=== PATIENT | male | born 1950 | race Hispanic/Latino ===

== ENCOUNTER 2016-12-28 09:14 | Inpatient (IN) | payer MEDICARE ==
[2016-12-28] MEDS ORDERED: SUBLIMAZE IV ONE (10:36)
[2016-12-28 11:12] LABS: Basophils % (Auto) 0.5 % (0.0-1.8); Eosinophils % (Auto) 0.8 % (0.0-4.3); Hematocrit 35.9 % (35.5-45.6); Hemoglobin 12.2 gm/dl (11.8-15.2); Mean Corpuscular HGB Conc 34 % (32-34); Mean Corpuscular Hemoglobin 34 pg (28-32); Mean Corpuscular Volume 99 fl (84-94); Platelet Count 152 K/mm3 (140-440); Red Blood Count 3.63 M/mm3 (3.65-5.03); Red Cell Distribution Width 14.4 % (13.2-15.2); White Blood Count 9.5 K/mm3 (4.5-11.0)
--- NOTE | 2016-12-28 11:13 | XRay Report ---
LEFT ANKLE, 2 VIEWS LEFT FOOT, 2 VIEWS History: Left foot and ankle pain. Findings: Limited exam with non-standard projections and posterior splint. A fracture/dislocation is identified at the left ankle. There is posterolateral dislocation of the talus with respect to the distal tibia. An oblique fracture through the distal fibula just before the ankle joint is displaced by 1 cm. The distal tibia is grossly intact. The remaining foot bones are grossly intact. Impression: Limited exam. Fracture/dislocation of the left ankle is identified as described above. Consultation with orthopedics and CT is recommended.
[2016-12-28 11:14] LABS: Anion Gap 22 mmol/L; BUN/Creatinine Ratio 8; Blood Urea Nitrogen 5 mg/dL (9-20); Calcium 8.4 mg/dL (8.4-10.2); Carbon Dioxide 20 mmol/L (22-30); Chloride 94.6 mmol/L (98-107); Glucose 95 mg/dL (75-100); Potassium 4.5 mmol/L (3.6-5.0); Sodium 132 mmol/L (137-145)
[2016-12-28 11:22] LABS: INR 1.05 (0.87-1.13)
[2016-12-28 11:23] LABS: Partial Thromboplastin Time 25.6 Sec. (24.2-36.6)
--- NOTE | 2016-12-28 11:46 | Emergency Department Report ---
ED General Adult HPI - General Chief complaint: Extremity Injury, Lower Stated complaint: POSS FRACTURED LT ANKLE Time Seen by Provider: 12/28/16 10:00 Source: patient, EMS Mode of arrival: Stretcher Limitations: Physical Limitation - History of Present Illness Initial comments: Patient is a 66-year-old male no significant past medical history who presents with left foot pain. Patient states that earlier today he fell down stairs and caught his ankle caught in the rail. He states that he's not been able to stand on it. He states that the pain is a 10 out of 10 and is an achy type of pain moving it makes it worse and nothing makes it better. The pain radiates up his leg and is constant. Onset of pain was sudden. Patient denies hernia himself anywhere else in his body. Severity scale (0 -10): 10 - Related Data Home Medications Medication Instructions Recorded Confirmed Last Taken No Known Home Medications [No 12/28/16 12/28/16 Unknown Reported Home Medications] Allergies Allergy/AdvReac Type Severity Reaction Status Date / Time No Known Allergies Allergy Unverified 12/28/16 09:43 ED Review of Systems ROS: Stated complaint: POSS FRACTURED LT ANKLE Other details as noted in HPI Constitutional: denies: chills, fever Eyes: denies: eye pain, eye discharge, vision change ENT: denies: ear pain, throat pain Respiratory: denies: cough, shortness of breath, wheezing Cardiovascular: denies: chest pain, palpitations Endocrine: no symptoms reported Gastrointestinal: denies: abdominal pain, nausea, diarrhea Genitourinary: denies: urgency, dysuria Musculoskeletal: as per HPI (left ankle pain ). denies: back pain, joint swelling, arthralgia Skin: denies: rash, lesions Neurological: denies: headache, weakness, paresthesias Psychiatric: denies: anxiety, depression Hematological/Lymphatic: denies: easy bleeding, easy bruising ED Past Medical Hx - Past Medical History Previous Medical History?: No - Surgical History Past Surgical History?: Yes Additional Surgical History: R FOOT SURGERY 1993 - Social History Smoking Status: Never Smoker Substance Use Type: Alcohol - Medications Home Medications: Home Medications Medication Instructions Recorded Confirmed Last Taken Type No Known Home Medications [No 12/28/16 12/28/16 Unknown History Reported Home Medications] ED Physical Exam - General Limitations: Physical Limitation General appearance: alert, in no apparent distress - Head Head exam: Present: atraumatic, normocephalic - Eye Eye exam: Present: normal appearance - ENT ENT exam: Present: mucous membranes moist - Neck Neck exam: Present: normal inspection - Respiratory Respiratory exam: Present: normal lung sounds bilaterally. Absent: respiratory distress - Cardiovascular Cardiovascular Exam: Present: regular rate, normal rhythm. Absent: systolic murmur, diastolic murmur, rubs, gallop - GI/Abdominal GI/Abdominal exam: Present: soft, normal bowel sounds - Rectal Rectal exam: Present: deferred - Extremities Exam Extremities exam: Present: other (left ankle deformity +2 pulses intact sensation. ) - Back Exam Back exam: Present: normal inspection - Neurological Exam Neurological exam: Present: alert, oriented X3 - Psychiatric Psychiatric exam: Present: normal affect, normal mood - Skin Skin exam: Present: warm, dry, intact, normal color. Absent: rash ED Course Vital Signs 12/28/16 12/28/16 12/28/16 09:27 09:35 09:36 Temperature 98.2 F Temperature [ Pre-Procedure] Pulse Rate 102 H Pulse Rate [ Intra-Procedure ] Pulse Rate [ Post-Procedure] Pulse Rate [Pre -Procedure] Respiratory 14 Rate Respiratory Rate [Intra- Procedure] Respiratory Rate [Post- Procedure] Respiratory Rate [Pre- Procedure] Blood Pressure 150/68 Blood Pressure [Intra- Procedure] Blood Pressure [Left] Blood Pressure [Post-Procedure ] Blood Pressure [Pre-Procedure] O2 Sat by Pulse 98 97 97 Oximetry O2 Sat by Pulse Oximetry [ Intra-Procedure ] O2 Sat by Pulse Oximetry [Post -Procedure] 12/28/16 12/28/16 12/28/16 09:38 09:40 09:41 Temperature Temperature [ Pre-Procedure] Pulse Rate 95 H 102 H Pulse Rate [ Intra-Procedure ] Pulse Rate [ Post-Procedure] Pulse Rate [Pre -Procedure] Respiratory 13 13 Rate Respiratory Rate [Intra- Procedure] Respiratory Rate [Post- Procedure] Respiratory Rate [Pre- Procedure] Blood Pressure 150/68 Blood Pressure [Intra- Procedure] Blood Pressure [Left] Blood Pressure [Post-Procedure ] Blood Pressure [Pre-Procedure] O2 Sat by Pulse 96 98 97 Oximetry O2 Sat by Pulse Oximetry [ Intra-Procedure ] O2 Sat by Pulse Oximetry [Post -Procedure] 12/28/16 12/28/16 12/28/16 11:18 12:46 12:48 Temperature Temperature [ 98.4 F Pre-Procedure] Pulse Rate Pulse Rate [ 101 H Intra-Procedure ] Pulse Rate [ Post-Procedure] Pulse Rate [Pre 98 H -Procedure] Respiratory 16 Rate Respiratory 17 Rate [Intra- Procedure] Respiratory Rate [Post- Procedure] Respiratory 10 L Rate [Pre- Procedure] Blood Pressure Blood Pressure 212/96 [Intra- Procedure] Blood Pressure [Left] Blood Pressure [Post-Procedure ] Blood Pressure 156/74 [Pre-Procedure] O2 Sat by Pulse 96 Oximetry O2 Sat by Pulse 96 Oximetry [ Intra-Procedure ] O2 Sat by Pulse Oximetry [Post -Procedure] 12/28/16 12/28/16 12/28/16 13:00 13:01 13:02 Temperature Temperature [ Pre-Procedure] Pulse Rate 108 H 114 H 114 H Pulse Rate [ Intra-Procedure ] Pulse Rate [ Post-Procedure] Pulse Rate [Pre -Procedure] Respiratory 21 19 24 Rate Respiratory Rate [Intra- Procedure] Respiratory Rate [Post- Procedure] Respiratory Rate [Pre- Procedure] Blood Pressure 208/109 218/104 218/104 Blood Pressure [Intra- Procedure] Blood Pressure [Left] Blood Pressure [Post-Procedure ] Blood Pressure [Pre-Procedure] O2 Sat by Pulse 97 98 97 Oximetry O2 Sat by Pulse Oximetry [ Intra-Procedure ] O2 Sat by Pulse Oximetry [Post -Procedure] 12/28/16 12/28/16 12/28/16 13:04 13:05 13:06 Temperature Temperature [ Pre-Procedure] Pulse Rate 106 H 108 H 106 H Pulse Rate [ Intra-Procedure ] Pulse Rate [ Post-Procedure] Pulse Rate [Pre -Procedure] Respiratory 22 13 13 Rate Respiratory Rate [Intra- Procedure] Respiratory Rate [Post- Procedure] Respiratory Rate [Pre- Procedure] Blood Pressure 218/104 212/96 212/96 Blood Pressure [Intra- Procedure] Blood Pressure [Left] Blood Pressure [Post-Procedure ] Blood Pressure [Pre-Procedure] O2 Sat by Pulse 96 95 96 Oximetry O2 Sat by Pulse Oximetry [ Intra-Procedure ] O2 Sat by Pulse Oximetry [Post -Procedure] 12/28/16 12/28/16 12/28/16 13:08 13:10 13:12 Temperature Temperature [ Pre-Procedure] Pulse Rate 98 H 100 H 98 H Pulse Rate [ Intra-Procedure ] Pulse Rate [ Post-Procedure] Pulse Rate [Pre -Procedure] Respiratory 9 L 18 9 L Rate Respiratory Rate [Intra- Procedure] Respiratory Rate [Post- Procedure] Respiratory Rate [Pre- Procedure] Blood Pressure 212/96 208/89 208/89 Blood Pressure [Intra- Procedure] Blood Pressure [Left] Blood Pressure [Post-Procedure ] Blood Pressure [Pre-Procedure] O2 Sat by Pulse 97 95 98 Oximetry O2 Sat by Pulse Oximetry [ Intra-Procedure ] O2 Sat by Pulse Oximetry [Post -Procedure] 12/28/16 12/28/16 12/28/16 13:14 13:15 13:16 Temperature Temperature [ Pre-Procedure] Pulse Rate 98 H 97 H 97 H Pulse Rate [ Intra-Procedure ] Pulse Rate [ 99 H Post-Procedure] Pulse Rate [Pre -Procedure] Respiratory 12 12 12 Rate Respiratory Rate [Intra- Procedure] Respiratory 12 Rate [Post- Procedure] Respiratory Rate [Pre- Procedure] Blood Pressure 208/109 197/80 197/80 Blood Pressure [Intra- Procedure] Blood Pressure [Left] Blood Pressure 208/89 [Post-Procedure ] Blood Pressure [Pre-Procedure] O2 Sat by Pulse 97 95 97 Oximetry O2 Sat by Pulse Oximetry [ Intra-Procedure ] O2 Sat by Pulse 97 Oximetry [Post -Procedure] 12/28/16 12/28/16 12/28/16 13:18 13:20 13:22 Temperature Temperature [ Pre-Procedure] Pulse Rate 103 H 101 H 100 H Pulse Rate [ Intra-Procedure ] Pulse Rate [ Post-Procedure] Pulse Rate [Pre -Procedure] Respiratory 12 13 12 Rate Respiratory Rate [Intra- Procedure] Respiratory Rate [Post- Procedure] Respiratory Rate [Pre- Procedure] Blood Pressure 197/80 195/69 195/69 Blood Pressure [Intra- Procedure] Blood Pressure [Left] Blood Pressure [Post-Procedure ] Blood Pressure [Pre-Procedure] O2 Sat by Pulse 97 96 96 Oximetry O2 Sat by Pulse Oximetry [ Intra-Procedure ] O2 Sat by Pulse Oximetry [Post -Procedure] 12/28/16 12/28/16 12/28/16 13:24 13:25 13:26 Temperature Temperature [ Pre-Procedure] Pulse Rate 98 H 97 H 96 H Pulse Rate [ Intra-Procedure ] Pulse Rate [ Post-Procedure] Pulse Rate [Pre -Procedure] Respiratory 12 12 12 Rate Respiratory Rate [Intra- Procedure] Respiratory Rate [Post- Procedure] Respiratory Rate [Pre- Procedure] Blood Pressure 195/69 173/78 173/78 Blood Pressure [Intra- Procedure] Blood Pressure [Left] Blood Pressure [Post-Procedure ] Blood Pressure [Pre-Procedure] O2 Sat by Pulse 96 95 96 Oximetry O2 Sat by Pulse Oximetry [ Intra-Procedure ] O2 Sat by Pulse Oximetry [Post -Procedure] 12/28/16 12/28/16 12/28/16 13:28 13:30 13:32 Temperature Temperature [ Pre-Procedure] Pulse Rate 96 H 103 H 96 H Pulse Rate [ Intra-Procedure ] Pulse Rate [ Post-Procedure] Pulse Rate [Pre -Procedure] Respiratory 12 13 14 Rate Respiratory Rate [Intra- Procedure] Respiratory Rate [Post- Procedure] Respiratory Rate [Pre- Procedure] Blood Pressure 173/78 182/86 182/86 Blood Pressure [Intra- Procedure] Blood Pressure [Left] Blood Pressure [Post-Procedure ] Blood Pressure [Pre-Procedure] O2 Sat by Pulse 96 95 95 Oximetry O2 Sat by Pulse Oximetry [ Intra-Procedure ] O2 Sat by Pulse Oximetry [Post -Procedure] 12/28/16 12/28/16 12/28/16 13:34 13:35 13:36 Temperature Temperature [ Pre-Procedure] Pulse Rate 94 H 94 H 98 H Pulse Rate [ Intra-Procedure ] Pulse Rate [ Post-Procedure] Pulse Rate [Pre -Procedure] Respiratory 13 11 L 10 L Rate Respiratory Rate [Intra- Procedure] Respiratory Rate [Post- Procedure] Respiratory Rate [Pre- Procedure] Blood Pressure 182/86 167/74 167/74 Blood Pressure [Intra- Procedure] Blood Pressure [Left] Blood Pressure [Post-Procedure ] Blood Pressure [Pre-Procedure] O2 Sat by Pulse 95 95 96 Oximetry O2 Sat by Pulse Oximetry [ Intra-Procedure ] O2 Sat by Pulse Oximetry [Post -Procedure] 12/28/16 12/28/16 12/28/16 13:38 13:40 13:42 Temperature Temperature [ Pre-Procedure] Pulse Rate 92 H 100 H 95 H Pulse Rate [ Intra-Procedure ] Pulse Rate [ Post-Procedure] Pulse Rate [Pre -Procedure] Respiratory 12 16 17 Rate Respiratory Rate [Intra- Procedure] Respiratory Rate [Post- Procedure] Respiratory Rate [Pre- Procedure] Blood Pressure 167/74 174/77 174/77 Blood Pressure [Intra- Procedure] Blood Pressure [Left] Blood Pressure [Post-Procedure ] Blood Pressure [Pre-Procedure] O2 Sat by Pulse 95 95 94 Oximetry O2 Sat by Pulse Oximetry [ Intra-Procedure ] O2 Sat by Pulse Oximetry [Post -Procedure] 12/28/16 12/28/16 12/28/16 13:44 13:45 13:46 Temperature Temperature [ Pre-Procedure] Pulse Rate 97 H 97 H 95 H Pulse Rate [ Intra-Procedure ] Pulse Rate [ Post-Procedure] Pulse Rate [Pre -Procedure] Respiratory 17 15 14 Rate Respiratory Rate [Intra- Procedure] Respiratory Rate [Post- Procedure] Respiratory Rate [Pre- Procedure] Blood Pressure 174/77 182/87 182/87 Blood Pressure [Intra- Procedure] Blood Pressure [Left] Blood Pressure [Post-Procedure ] Blood Pressure [Pre-Procedure] O2 Sat by Pulse 95 93 95 Oximetry O2 Sat by Pulse Oximetry [ Intra-Procedure ] O2 Sat by Pulse Oximetry [Post -Procedure] 12/28/16 12/28/16 12/28/16 13:48 13:50 13:51 Temperature Temperature [ Pre-Procedure] Pulse Rate 97 H 105 H 101 H Pulse Rate [ Intra-Procedure ] Pulse Rate [ Post-Procedure] Pulse Rate [Pre -Procedure] Respiratory 17 17 24 Rate Respiratory Rate [Intra- Procedure] Respiratory Rate [Post- Procedure] Respiratory Rate [Pre- Procedure] Blood Pressure 182/87 183/146 183/146 Blood Pressure [Intra- Procedure] Blood Pressure [Left] Blood Pressure [Post-Procedure ] Blood Pressure [Pre-Procedure] O2 Sat by Pulse 96 94 91 Oximetry O2 Sat by Pulse Oximetry [ Intra-Procedure ] O2 Sat by Pulse Oximetry [Post -Procedure] 12/28/16 12/28/16 12/28/16 13:52 13:54 13:55 Temperature Temperature [ Pre-Procedure] Pulse Rate 91 H 86 87 Pulse Rate [ Intra-Procedure ] Pulse Rate [ Post-Procedure] Pulse Rate [Pre -Procedure] Respiratory 12 13 12 Rate Respiratory Rate [Intra- Procedure] Respiratory Rate [Post- Procedure] Respiratory Rate [Pre- Procedure] Blood Pressure 183/146 183/146 173/83 Blood Pressure [Intra- Procedure] Blood Pressure [Left] Blood Pressure [Post-Procedure ] Blood Pressure [Pre-Procedure] O2 Sat by Pulse 95 95 95 Oximetry O2 Sat by Pulse Oximetry [ Intra-Procedure ] O2 Sat by Pulse Oximetry [Post -Procedure] 12/28/16 12/28/16 12/28/16 13:56 13:58 14:00 Temperature Temperature [ Pre-Procedure] Pulse Rate 90 86 82 Pulse Rate [ Intra-Procedure ] Pulse Rate [ Post-Procedure] Pulse Rate [Pre -Procedure] Respiratory 10 L 12 12 Rate Respiratory Rate [Intra- Procedure] Respiratory Rate [Post- Procedure] Respiratory Rate [Pre- Procedure] Blood Pressure 173/83 173/83 173/83 Blood Pressure [Intra- Procedure] Blood Pressure [Left] Blood Pressure [Post-Procedure ] Blood Pressure [Pre-Procedure] O2 Sat by Pulse 97 96 95 Oximetry O2 Sat by Pulse Oximetry [ Intra-Procedure ] O2 Sat by Pulse Oximetry [Post -Procedure] 12/28/16 12/28/16 12/28/16 14:02 14:04 14:05 Temperature Temperature [ Pre-Procedure] Pulse Rate 86 82 90 Pulse Rate [ Intra-Procedure ] Pulse Rate [ Post-Procedure] Pulse Rate [Pre -Procedure] Respiratory 11 L 13 13 Rate Respiratory Rate [Intra- Procedure] Respiratory Rate [Post- Procedure] Respiratory Rate [Pre- Procedure] Blood Pressure 166/83 166/83 161/76 Blood Pressure [Intra- Procedure] Blood Pressure [Left] Blood Pressure [Post-Procedure ] Blood Pressure [Pre-Procedure] O2 Sat by Pulse 96 97 94 Oximetry O2 Sat by Pulse Oximetry [ Intra-Procedure ] O2 Sat by Pulse Oximetry [Post -Procedure] 12/28/16 12/28/16 12/28/16 14:06 14:07 14:09 Temperature Temperature [ Pre-Procedure] Pulse Rate 85 84 85 Pulse Rate [ Intra-Procedure ] Pulse Rate [ Post-Procedure] Pulse Rate [Pre -Procedure] Respiratory 12 13 13 Rate Respiratory Rate [Intra- Procedure] Respiratory Rate [Post- Procedure] Respiratory Rate [Pre- Procedure] Blood Pressure 161/76 161/76 161/76 Blood Pressure [Intra- Procedure] Blood Pressure [Left] Blood Pressure [Post-Procedure ] Blood Pressure [Pre-Procedure] O2 Sat by Pulse 96 96 95 Oximetry O2 Sat by Pulse Oximetry [ Intra-Procedure ] O2 Sat by Pulse Oximetry [Post -Procedure] 12/28/16 12/28/16 12/28/16 14:18 14:20 14:22 Temperature Temperature [ Pre-Procedure] Pulse Rate 80 82 80 Pulse Rate [ Intra-Procedure ] Pulse Rate [ Post-Procedure] Pulse Rate [Pre -Procedure] Respiratory 14 13 13 Rate Respiratory Rate [Intra- Procedure] Respiratory Rate [Post- Procedure] Respiratory Rate [Pre- Procedure] Blood Pressure 167/67 167/67 Blood Pressure [Intra- Procedure] Blood Pressure [Left] Blood Pressure [Post-Procedure ] Blood Pressure [Pre-Procedure] O2 Sat by Pulse 96 97 96 Oximetry O2 Sat by Pulse Oximetry [ Intra-Procedure ] O2 Sat by Pulse Oximetry [Post -Procedure] 12/28/16 12/28/16 12/28/16 14:24 14:25 14:26 Temperature Temperature [ Pre-Procedure] Pulse Rate 81 83 82 Pulse Rate [ Intra-Procedure ] Pulse Rate [ Post-Procedure] Pulse Rate [Pre -Procedure] Respiratory 14 13 11 L Rate Respiratory Rate [Intra- Procedure] Respiratory Rate [Post- Procedure] Respiratory Rate [Pre- Procedure] Blood Pressure 170/74 170/74 170/74 Blood Pressure [Intra- Procedure] Blood Pressure [Left] Blood Pressure [Post-Procedure ] Blood Pressure [Pre-Procedure] O2 Sat by Pulse 96 96 96 Oximetry O2 Sat by Pulse Oximetry [ Intra-Procedure ] O2 Sat by Pulse Oximetry [Post -Procedure] 12/28/16 12/28/16 12/28/16 14:28 14:30 14:32 Temperature Temperature [ Pre-Procedure] Pulse Rate 80 79 80 Pulse Rate [ Intra-Procedure ] Pulse Rate [ Post-Procedure] Pulse Rate [Pre -Procedure] Respiratory 11 L 12 15 Rate Respiratory Rate [Intra- Procedure] Respiratory Rate [Post- Procedure] Respiratory Rate [Pre- Procedure] Blood Pressure 170/74 157/69 166/73 Blood Pressure [Intra- Procedure] Blood Pressure [Left] Blood Pressure [Post-Procedure ] Blood Pressure [Pre-Procedure] O2 Sat by Pulse 97 96 96 Oximetry O2 Sat by Pulse Oximetry [ Intra-Procedure ] O2 Sat by Pulse Oximetry [Post -Procedure] 12/28/16 12/28/16 12/28/16 14:34 14:35 14:36 Temperature Temperature [ Pre-Procedure] Pulse Rate 81 78 80 Pulse Rate [ Intra-Procedure ] Pulse Rate [ Post-Procedure] Pulse Rate [Pre -Procedure] Respiratory 15 13 13 Rate Respiratory Rate [Intra- Procedure] Respiratory Rate [Post- Procedure] Respiratory Rate [Pre- Procedure] Blood Pressure 168/68 168/68 168/68 Blood Pressure [Intra- Procedure] Blood Pressure [Left] Blood Pressure [Post-Procedure ] Blood Pressure [Pre-Procedure] O2 Sat by Pulse 96 96 96 Oximetry O2 Sat by Pulse Oximetry [ Intra-Procedure ] O2 Sat by Pulse Oximetry [Post -Procedure] 12/28/16 12/28/16 12/28/16 14:38 14:40 14:42 Temperature Temperature [ Pre-Procedure] Pulse Rate 80 82 81 Pulse Rate [ Intra-Procedure ] Pulse Rate [ Post-Procedure] Pulse Rate [Pre -Procedure] Respiratory 13 13 14 Rate Respiratory Rate [Intra- Procedure] Respiratory Rate [Post- Procedure] Respiratory Rate [Pre- Procedure] Blood Pressure 168/68 168/74 168/74 Blood Pressure [Intra- Procedure] Blood Pressure [Left] Blood Pressure [Post-Procedure ] Blood Pressure [Pre-Procedure] O2 Sat by Pulse 96 96 96 Oximetry O2 Sat by Pulse Oximetry [ Intra-Procedure ] O2 Sat by Pulse Oximetry [Post -Procedure] 12/28/16 12/28/16 12/28/16 14:44 14:45 14:46 Temperature Temperature [ Pre-Procedure] Pulse Rate 80 82 80 Pulse Rate [ Intra-Procedure ] Pulse Rate [ Post-Procedure] Pulse Rate [Pre -Procedure] Respiratory 14 16 14 Rate Respiratory Rate [Intra- Procedure] Respiratory Rate [Post- Procedure] Respiratory Rate [Pre- Procedure] Blood Pressure 165/73 165/73 165/73 Blood Pressure [Intra- Procedure] Blood Pressure [Left] Blood Pressure [Post-Procedure ] Blood Pressure [Pre-Procedure] O2 Sat by Pulse 97 96 96 Oximetry O2 Sat by Pulse Oximetry [ Intra-Procedure ] O2 Sat by Pulse Oximetry [Post -Procedure] 12/28/16 12/28/16 12/28/16 14:48 14:50 14:52 Temperature Temperature [ Pre-Procedure] Pulse Rate 81 79 80 Pulse Rate [ Intra-Procedure ] Pulse Rate [ Post-Procedure] Pulse Rate [Pre -Procedure] Respiratory 13 14 15 Rate Respiratory Rate [Intra- Procedure] Respiratory Rate [Post- Procedure] Respiratory Rate [Pre- Procedure] Blood Pressure 165/73 174/71 174/71 Blood Pressure [Intra- Procedure] Blood Pressure [Left] Blood Pressure [Post-Procedure ] Blood Pressure [Pre-Procedure] O2 Sat by Pulse 96 96 96 Oximetry O2 Sat by Pulse Oximetry [ Intra-Procedure ] O2 Sat by Pulse Oximetry [Post -Procedure] 12/28/16 12/28/16 12/28/16 14:54 14:55 14:56 Temperature Temperature [ Pre-Procedure] Pulse Rate 85 81 80 Pulse Rate [ Intra-Procedure ] Pulse Rate [ Post-Procedure] Pulse Rate [Pre -Procedure] Respiratory 15 15 15 Rate Respiratory Rate [Intra- Procedure] Respiratory Rate [Post- Procedure] Respiratory Rate [Pre- Procedure] Blood Pressure 161/74 161/74 161/74 Blood Pressure [Intra- Procedure] Blood Pressure [Left] Blood Pressure [Post-Procedure ] Blood Pressure [Pre-Procedure] O2 Sat by Pulse 97 96 97 Oximetry O2 Sat by Pulse Oximetry [ Intra-Procedure ] O2 Sat by Pulse Oximetry [Post -Procedure] 12/28/16 12/28/16 12/28/16 14:58 15:00 15:02 Temperature Temperature [ Pre-Procedure] Pulse Rate 81 80 81 Pulse Rate [ Intra-Procedure ] Pulse Rate [ Post-Procedure] Pulse Rate [Pre -Procedure] Respiratory 16 16 15 Rate Respiratory Rate [Intra- Procedure] Respiratory Rate [Post- Procedure] Respiratory Rate [Pre- Procedure] Blood Pressure 161/74 172/75 172/75 Blood Pressure [Intra- Procedure] Blood Pressure [Left] Blood Pressure [Post-Procedure ] Blood Pressure [Pre-Procedure] O2 Sat by Pulse 96 96 97 Oximetry O2 Sat by Pulse Oximetry [ Intra-Procedure ] O2 Sat by Pulse Oximetry [Post -Procedure] 12/28/16 12/28/16 12/28/16 15:04 15:05 15:06 Temperature Temperature [ Pre-Procedure] Pulse Rate 85 85 92 H Pulse Rate [ Intra-Procedure ] Pulse Rate [ Post-Procedure] Pulse Rate [Pre -Procedure] Respiratory 17 17 15 Rate Respiratory Rate [Intra- Procedure] Respiratory Rate [Post- Procedure] Respiratory Rate [Pre- Procedure] Blood Pressure 171/78 171/78 171/78 Blood Pressure [Intra- Procedure] Blood Pressure [Left] Blood Pressure [Post-Procedure ] Blood Pressure [Pre-Procedure] O2 Sat by Pulse 97 96 Oximetry O2 Sat by Pulse Oximetry [ Intra-Procedure ] O2 Sat by Pulse Oximetry [Post -Procedure] 12/28/16 12/28/16 12/28/16 15:08 15:10 15:12 Temperature Temperature [ Pre-Procedure] Pulse Rate 84 80 81 Pulse Rate [ Intra-Procedure ] Pulse Rate [ Post-Procedure] Pulse Rate [Pre -Procedure] Respiratory 15 15 14 Rate Respiratory Rate [Intra- Procedure] Respiratory Rate [Post- Procedure] Respiratory Rate [Pre- Procedure] Blood Pressure 171/78 168/75 168/75 Blood Pressure [Intra- Procedure] Blood Pressure [Left] Blood Pressure [Post-Procedure ] Blood Pressure [Pre-Procedure] O2 Sat by Pulse 97 96 97 Oximetry O2 Sat by Pulse Oximetry [ Intra-Procedure ] O2 Sat by Pulse Oximetry [Post -Procedure] 12/28/16 12/28/16 12/28/16 15:14 15:15 15:16 Temperature Temperature [ Pre-Procedure] Pulse Rate 82 85 82 Pulse Rate [ Intra-Procedure ] Pulse Rate [ Post-Procedure] Pulse Rate [Pre -Procedure] Respiratory 15 14 15 Rate Respiratory Rate [Intra- Procedure] Respiratory Rate [Post- Procedure] Respiratory Rate [Pre- Procedure] Blood Pressure 164/70 164/70 164/70 Blood Pressure [Intra- Procedure] Blood Pressure [Left] Blood Pressure [Post-Procedure ] Blood Pressure [Pre-Procedure] O2 Sat by Pulse 97 96 98 Oximetry O2 Sat by Pulse Oximetry [ Intra-Procedure ] O2 Sat by Pulse Oximetry [Post -Procedure] 12/28/16 12/28/16 12/28/16 15:18 15:20 15:22 Temperature Temperature [ Pre-Procedure] Pulse Rate 80 82 85 Pulse Rate [ Intra-Procedure ] Pulse Rate [ Post-Procedure] Pulse Rate [Pre -Procedure] Respiratory 15 16 18 Rate Respiratory Rate [Intra- Procedure] Respiratory Rate [Post- Procedure] Respiratory Rate [Pre- Procedure] Blood Pressure 164/70 172/77 172/77 Blood Pressure [Intra- Procedure] Blood Pressure [Left] Blood Pressure [Post-Procedure ] Blood Pressure [Pre-Procedure] O2 Sat by Pulse 97 97 97 Oximetry O2 Sat by Pulse Oximetry [ Intra-Procedure ] O2 Sat by Pulse Oximetry [Post -Procedure] 12/28/16 12/28/16 12/28/16 15:24 15:25 15:26 Temperature Temperature [ Pre-Procedure] Pulse Rate 82 92 H 94 H Pulse Rate [ Intra-Procedure ] Pulse Rate [ Post-Procedure] Pulse Rate [Pre -Procedure] Respiratory 13 15 16 Rate Respiratory Rate [Intra- Procedure] Respiratory Rate [Post- Procedure] Respiratory Rate [Pre- Procedure] Blood Pressure 171/85 171/85 171/85 Blood Pressure [Intra- Procedure] Blood Pressure [Left] Blood Pressure [Post-Procedure ] Blood Pressure [Pre-Procedure] O2 Sat by Pulse 98 97 97 Oximetry O2 Sat by Pulse Oximetry [ Intra-Procedure ] O2 Sat by Pulse Oximetry [Post -Procedure] 12/28/16 12/28/16 12/28/16 15:27 15:28 15:30 Temperature Temperature [ Pre-Procedure] Pulse Rate 86 80 88 Pulse Rate [ Intra-Procedure ] Pulse Rate [ Post-Procedure] Pulse Rate [Pre -Procedure] Respiratory 15 11 L 17 Rate Respiratory Rate [Intra- Procedure] Respiratory Rate [Post- Procedure] Respiratory Rate [Pre- Procedure] Blood Pressure 171/85 171/85 162/76 Blood Pressure [Intra- Procedure] Blood Pressure [Left] Blood Pressure [Post-Procedure ] Blood Pressure [Pre-Procedure] O2 Sat by Pulse 98 99 97 Oximetry O2 Sat by Pulse Oximetry [ Intra-Procedure ] O2 Sat by Pulse Oximetry [Post -Procedure] 12/28/16 12/28/16 12/28/16 15:32 15:34 15:36 Temperature Temperature [ Pre-Procedure] Pulse Rate 91 H 86 90 Pulse Rate [ Intra-Procedure ] Pulse Rate [ Post-Procedure] Pulse Rate [Pre -Procedure] Respiratory 16 13 13 Rate Respiratory Rate [Intra- Procedure] Respiratory Rate [Post- Procedure] Respiratory Rate [Pre- Procedure] Blood Pressure 162/76 162/76 162/76 Blood Pressure [Intra- Procedure] Blood Pressure [Left] Blood Pressure [Post-Procedure ] Blood Pressure [Pre-Procedure] O2 Sat by Pulse 97 100 99 Oximetry O2 Sat by Pulse Oximetry [ Intra-Procedure ] O2 Sat by Pulse Oximetry [Post -Procedure] 12/28/16 12/28/16 12/28/16 15:38 15:40 15:42 Temperature Temperature [ Pre-Procedure] Pulse Rate 84 85 82 Pulse Rate [ Intra-Procedure ] Pulse Rate [ Post-Procedure] Pulse Rate [Pre -Procedure] Respiratory 13 13 14 Rate Respiratory Rate [Intra- Procedure] Respiratory Rate [Post- Procedure] Respiratory Rate [Pre- Procedure] Blood Pressure 162/76 171/85 171/85 Blood Pressure [Intra- Procedure] Blood Pressure [Left] Blood Pressure [Post-Procedure ] Blood Pressure [Pre-Procedure] O2 Sat by Pulse 99 99 99 Oximetry O2 Sat by Pulse Oximetry [ Intra-Procedure ] O2 Sat by Pulse Oximetry [Post -Procedure] 12/28/16 12/28/16 12/28/16 15:44 15:46 15:48 Temperature Temperature [ Pre-Procedure] Pulse Rate 80 81 95 H Pulse Rate [ Intra-Procedure ] Pulse Rate [ Post-Procedure] Pulse Rate [Pre -Procedure] Respiratory 12 13 17 Rate Respiratory Rate [Intra- Procedure] Respiratory Rate [Post- Procedure] Respiratory Rate [Pre- Procedure] Blood Pressure 171/85 171/85 171/85 Blood Pressure [Intra- Procedure] Blood Pressure [Left] Blood Pressure [Post-Procedure ] Blood Pressure [Pre-Procedure] O2 Sat by Pulse 98 99 98 Oximetry O2 Sat by Pulse Oximetry [ Intra-Procedure ] O2 Sat by Pulse Oximetry [Post -Procedure] 12/28/16 12/28/16 15:50 16:01 Temperature 98.2 F Temperature [ Pre-Procedure] Pulse Rate 85 91 H Pulse Rate [ Intra-Procedure ] Pulse Rate [ Post-Procedure] Pulse Rate [Pre -Procedure] Respiratory 13 11 L Rate Respiratory Rate [Intra- Procedure] Respiratory Rate [Post- Procedure] Respiratory Rate [Pre- Procedure] Blood Pressure 171/85 Blood Pressure [Intra- Procedure] Blood Pressure 151/79 [Left] Blood Pressure [Post-Procedure ] Blood Pressure [Pre-Procedure] O2 Sat by Pulse 100 99 Oximetry O2 Sat by Pulse Oximetry [ Intra-Procedure ] O2 Sat by Pulse Oximetry [Post -Procedure] - Reevaluation(s) Reevaluation #1: 12/28/16 12:45 Patient is feeling better after reduction - Consultations Consultation #1: 12/28/16 16:[address] Faulkner for posterior talus dislocation and distal tib-fib fracture. Discussed with Dr. Faulkner patient will be admitted to the hospitalist service and he will be admitted for surgery tomorrow. - Moderate Sedation Indications: fracture/dislocation redu Presedation Evaluation: Patient is alert and oriented dry secretions patient has no upper teeth ASA Class: II Mallampati Airway Score: 2 Time of Last PO Intake: 06:00 Preparation: teletypesetter monitor applied, pulse oximeter, supplemental O2 applied, suction/airway equipment at bedside Ketamine: IV Ketamine Dose: 130 Complications: none Interventions: oxygen applied Patient Tolerated Procedure: well - Orthopedic Fracture Reduction Fracture #1 Consent Obtained: verbal consent Time Out Performed: Yes Side: left Fracture Reduction Location: fibula, other (taleus ) Analgesia: moderate sedation Post Reduction X-rays Demonstrate: acceptable reduction Post-Reduction Neuro Exam: intact Post-Reduction Vascular Exam: intact Splint Applied: Yes Patient Tolerated Procedure: well - Orthopedic Splinting/Casting Injury #1 Side: left Lower Extremity Injury Location: lower leg Lower Extremity Immobilizer: posterior splint, stirrup splint ED Medical Decision Making - Lab Data Result diagrams: 12/28/16 10:37 12/28/16 10:37 Labs 12/28/16 12/28/16 12/28/16 10:37 10:37 10:37 WBC 9.5 RBC 3.63 L Hgb 12.2 Hct 35.9 MCV 99 H MCH 34 H MCHC 34 RDW 14.4 Plt Count 152 Lymph % (Auto) 10.4 L [place] % (Auto) 9.7 H Eos % (Auto) 0.8 Baso % (Auto) 0.5 Lymph # 1.0 L [place] # 0.9 H Eos # 0.1 Baso # 0.1 Seg Neutrophils % 78.6 H Seg Neutrophils # 7.5 PT 14.2 INR 1.05 APTT 25.6 Sodium 132 L Potassium 4.5 Chloride 94.6 L Carbon Dioxide 20 L Anion Gap 22 BUN 5 L Creatinine 0.6 L Estimated GFR > 60 BUN/Creatinine Ratio 8 Glucose 95 Calcium 8.4 - Radiology Data Radiology results: report reviewed, image reviewed Left ankle x-ray: Left ankle fracture dislocation posterior lateral dislocation of the talus Left ankle x-ray: After reduction shows partial reduction of fracture with posterior leg splint applied. - Medical Decision Making Chief medical diagnosis: Distal tib-fib fracture Differential trauma diagnosis: Bimalleolar fracture, trimalleolar fracture, distal fib fracture I will get IV pain medicine, IV sedation, CBC, CMP, INR, PTT, orthopedic surgery consult Patient has distal tibia fracture patient has been sedated and reduced he will need surgery by Dr. Faulkner. Discussed with Dr. Faulkner patient will go to the OR. Tomorrow I will obtain a CT of patient's lower extremity. Patient's pain is better controlled after sedation. Patient will have surgery and he will be admitted to Dr. Rodriguez's service. Discussed outpatient patient agrees with plan. Critical care attestation.: If time is entered above; I have spent that time in minutes in the direct care of this critically ill patient, excluding procedure time. ED Disposition Clinical Impression: Closed left ankle fracture Qualifiers: Encounter type: initial encounter Qualified Code(s): S82.892A - Other fracture of left lower leg, initial encounter for closed fracture Left ankle pain Qualifiers: Chronicity: acute Qualified Code(s): M25.572 - Pain in left ankle and joints of left foot Fracture of distal fibula Qualifiers: Encounter type: initial encounter Fracture type: closed Fracture morphology: unspecified fracture morphology Laterality: left Qualified Code(s): S82.832A - Other fracture of upper and lower end of left fibula, initial encounter for closed fracture Disposition: 09 OP ADMIT IP TO THIS HOSP Is pt being admited?: No Does the pt Need Aspirin: No Condition: Stable
[2016-12-28] MEDS ORDERED: KETALAR IV ONE (12:00)
[2016-12-28] MEDS ORDERED: DILAUDID IV ONE (13:04)
[2016-12-28] MEDS ORDERED: DILAUDID ONE (13:08)
--- NOTE | 2016-12-28 14:42 | History and Physical Report ---
History of Present Illness Date of examination: 12/28/16 Date of admission: 12/28/16 Chief complaint: CC History of present illness: 66 y/o male with no sig PMH fell from stairs after his foot got caught in the railing.Severe pain in Lt ankle and unable to put any weight on L foot.Pain is 10/10 in severity.Sharp in nature.Relieving factor is rest and no movement.Exacerbating factor is any movement in lower extremity. Past History Past Medical History: No medical history Past Surgical History: No surgical history Social history: no significant social history, lives with family, full code Family history: no significant family history Medications and Allergies Allergies Allergy/AdvReac Type Severity Reaction Status Date / Time No Known Allergies Allergy Unverified 12/28/16 09:43 Home Medications Medication Instructions Recorded Confirmed Last Taken Type No Known Home Medications [No 12/28/16 12/28/16 Unknown History Reported Home Medications] Review of Systems All systems: negative Constitutional: no weight loss, no weight gain, no fever, no chills Ears, nose, mouth and throat: no dysphagia, no hoarseness, no sore throat Cardiovascular: no chest pain, no orthopnea, no palpitations, no rapid/ irregular heart beat, no shortness of breath Respiratory: no cough, no shortness of breath, no dyspnea on exertion, no wheezing Gastrointestinal: no abdominal pain, no nausea, no vomiting, no diarrhea, no constipation Genitourinary Male: no dysuria, no hematuria, no flank pain, no discharge, no urinary frequency Rectal: no pain Musculoskeletal: fractures (Lt Trimalleolar Fx), no neck stiffness, no neck pain , no shooting arm pain, no arm numbness/tingling Integumentary: no rash, no pruritis, no redness Neurological: no seizures, no syncope Psychiatric: no anxiety, no memory loss, no change in sleep habits, no sleep disturbances Endocrine: no cold intolerance, no heat intolerance, no polyphagia, no excessive thirst Hematologic/Lymphatic: no easy bruising, no easy bleeding Allergic/Immunologic: no urticaria, no allergic rhinitis, no wheezing Exam - Constitutional Vitals: Temp Pulse Resp BP Pulse Ox 98.4 F 80 11 L 170/74 97 12/28/16 12:46 12/28/16 14:28 12/28/16 14:28 12/28/16 14:28 12/28/16 14:28 General appearance: Present: no acute distress, well-nourished - EENT Eyes: Present: PERRL ENT: hearing intact, clear oral mucosa - Neck Neck: Present: supple, normal ROM - Respiratory Respiratory effort: normal Respiratory: bilateral: CTA - Cardiovascular Heart Sounds: Present: S1 & S2. Absent: rub, click - Extremities Extremities: pulses symmetrical, No edema Peripheral Pulses: within normal limits - Abdominal General gastrointestinal: Present: soft, non-tender, non-distended, normal bowel sounds Male genitourinary: Present: normal - Integumentary Integumentary: Present: clear, warm, dry - Musculoskeletal Musculoskeletal: gait normal, strength equal bilaterally - Psychiatric Psychiatric: appropriate mood/affect, intact judgment & insight - Neurologic Neurologic: CNII-XII intact, moves all extremities Results - Labs CBC & Chem 7: 12/29/16 03:36 12/29/16 03:36 Labs: Laboratory Last Values WBC 9.5 K/mm3 (4.5-11.0) 12/28/16 10:37 RBC 3.63 M/mm3 (3.65-5.03) L 12/28/16 10:37 Hgb 12.2 gm/dl (11.8-15.2) 12/28/16 10:37 Hct 35.9 % (35.5-45.6) 12/28/16 10:37 MCV 99 fl (84-94) H 12/28/16 10:37 MCH 34 pg (28-32) H 12/28/16 10:37 MCHC 34 % (32-34) 12/28/16 10:37 RDW 14.4 % (13.2-15.2) 12/28/16 10:37 Plt Count 152 K/mm3 (140-440) 12/28/16 10:37 Lymph % (Auto) 10.4 % (13.4-35.0) L 12/28/16 10:37 [place] % (Auto) 9.7 % (0.0-7.3) H 12/28/16 10:37 Eos % (Auto) 0.8 % (0.0-4.3) 12/28/16 10:37 Baso % (Auto) 0.5 % (0.0-1.8) 12/28/16 10:37 Lymph # 1.0 K/mm3 (1.2-5.4) L 12/28/16 10:37 [place] # 0.9 K/mm3 (0.0-0.8) H 12/28/16 10:37 Eos # 0.1 K/mm3 (0.0-0.4) 12/28/16 10:37 Baso # 0.1 K/mm3 (0.0-0.1) 12/28/16 10:37 Seg Neutrophils % 78.6 % (40.0-70.0) H 12/28/16 10:37 Seg Neutrophils # 7.5 K/mm3 (1.8-7.7) 12/28/16 10:37 PT 14.2 Sec. (12.2-14.9) 12/28/16 10:37 INR 1.05 (0.87-1.13) 12/28/16 10:37 APTT 25.6 Sec. (24.2-36.6) 12/28/16 10:37 Sodium 132 mmol/L (137-145) L 12/28/16 10:37 Potassium 4.5 mmol/L (3.6-5.0) 12/28/16 10:37 Chloride 94.6 mmol/L (98-107) L 12/28/16 10:37 Carbon Dioxide 20 mmol/L (22-30) L 12/28/16 10:37 Anion Gap 22 mmol/L 12/28/16 10:37 BUN 5 mg/dL (9-20) L 12/28/16 10:37 Creatinine 0.6 mg/dL (0.8-1.5) L 12/28/16 10:37 Estimated GFR > 60 ml/min 12/28/16 10:37 BUN/Creatinine Ratio 8 % 12/28/16 10:37 Glucose 95 mg/dL (75-100) 12/28/16 10:37 Calcium 8.4 mg/dL (8.4-10.2) 12/28/16 10:37 - Imaging and Cardiology Imaging and Cardiology: LE Ct TrimalleolarFracture -Markedmedial subluxation of Tibia in relation to Talus.Displaced and free distal fibular fragment of about 10 cms Assessment and Plan Advance Directives: Yes (Full code) VTE prophylaxis?: Chemical Plan of care discussed with patient/family: Yes - Patient Problems (1) Closed left ankle fracture Current Visit: Yes Status: Acute Qualifiers: Encounter type: initial encounter Fracture healing: F Qualified Code(s): S82.892A - Other fracture of left lower leg, initial encounter for closed fracture Plan to address problem: Involving Tibia and Fibula.Distal fibula fracture with displaced distal fragment. Dislocationcorrected in ED by ED physician and splinted.Needs ORIF.Ortho consulted. (2) Pain management Current Visit: Yes Status: Acute Plan to address problem: Morphine 2 to 4 mg IVq 4 prn (3) DVT prophylaxis Current Visit: Yes Status: Acute Plan to address problem: On SCD's
[2016-12-28] MEDS ORDERED: TYLENOL PO PRN (14:43)
[2016-12-28] MEDS ORDERED: PERCOCET 5/325 PO PRN (14:43)
[2016-12-28] MEDS ORDERED: MILK OF MAGNESIA PO PRN (14:43)
[2016-12-28] MEDS ORDERED: DULCOLAX PR PRN (14:43)
[2016-12-28] MEDS ORDERED: ZOFRAN IV PRN (14:43)
--- NOTE | 2016-12-28 15:00 | XRay Report ---
LEFT ANKLE, 3 VIEWS History: Postreduction film. Findings: Partial reduction of the fracture dislocation at the left ankle is demonstrated since earlier today at 1002 hrs. Please correlate with the images. A posterior splint has been applied. Impression: Partial reduction of the fracture dislocation at the left ankle.
[2016-12-28] MEDS ORDERED: MORPHINE ONE (15:48)
[2016-12-28] MEDS: MORPHINE IV PRN ×2 (15:51→20:22)
--- NOTE | 2016-12-28 18:02 | Cat Scan Report ---
FINAL REPORT PROCEDURE: CT LOWER EXTREMITY LT WO CON TECHNIQUE: Computerized axial tomography of the LEFT ankle was performed without contrast. HISTORY: Ankle fracture. Pain. COMPARISON: No prior studies are available for comparison. FINDINGS: There is artifact from splint material in place. There is marked medial subluxation of the tibia in relation to the talus. The talar dome appears intact although there is a irregular bony density seen projecting between the medial malleolus and the medial wall of the talus measuring 11 millimeters x 6.5 millimeters suggesting avulsed bone fragment. An additional tiny fragment is seen adjacent to this measuring approximately 1.5 millimeters. A well corticated oval calcification is seen inferior to the medial malleolus measuring 5.9 millimeters which appears represent an accessory ossicle. There is a mildly comminuted fracture of the distal fibula with moderate displacement. The shaft of the fibula is displaced 1 bone shaft width anterior in relation to the remainder of the distal fibula. The fibula is also displaced medially with the tibia suggesting the interosseous ligament is intact. There are small irregular calcifications seen posterior medial aspect of the distal tibia consistent with a avulsion fracture. This measures approximately 12.5 x 4.5 millimeter. This is best visualized on coronal reconstruction image 62 series 200. The talar dome is intact. Talar calcaneal joint space appears preserved. Moderate size calcaneal spurs are seen at the plantar fascia insertion site and the Achilles tendon insertion site. IMPRESSION: Displaced trimalleolar fracture. The tibia and fibula are displaced medially.
[2016-12-29] MEDS: MORPHINE IV PRN (00:10)
[2016-12-29 04:18] LABS: Basophils % (Auto) 0.9 % (0.0-1.8); Eosinophils % (Auto) 3.1 % (0.0-4.3); Hematocrit 34.8 % (35.5-45.6); Hemoglobin 12.1 gm/dl (11.8-15.2); Mean Corpuscular HGB Conc 35 % (32-34); Mean Corpuscular Hemoglobin 34 pg (28-32); Mean Corpuscular Volume 98 fl (84-94); Platelet Count 141 K/mm3 (140-440); Red Blood Count 3.55 M/mm3 (3.65-5.03); Red Cell Distribution Width 14.1 % (13.2-15.2); White Blood Count 7.9 K/mm3 (4.5-11.0)
[2016-12-29 04:35] LABS: BUN/Creatinine Ratio 11; Blood Urea Nitrogen 8 mg/dL (9-20); Calcium 8.6 mg/dL (8.4-10.2); Carbon Dioxide 28 mmol/L (22-30); Chloride 98.5 mmol/L (98-107); Glucose 105 mg/dL (75-100); Potassium 4.6 mmol/L (3.6-5.0); Sodium 137 mmol/L (137-145)
[2016-12-29 04:37] LABS: Anion Gap 15 mmol/L
[2016-12-29] MEDS: D5NS 1,000 ML IV SCH (05:11)
[2016-12-29] MEDS ORDERED: SUBLIMAZE IV NR (07:26)
[2016-12-29] MEDS ORDERED: XYLOCAINE MPF 2% ONE (07:45)
[2016-12-29] MEDS ORDERED: SUBLIMAZE ONE (07:46)
[2016-12-29] MEDS ORDERED: DIPRIVAN 10 MG/ML IV ONE (07:46)
[2016-12-29] MEDS ORDERED: NACL 0.9% 1000 ML 1,000 ML IV SCH (08:00)
[2016-12-29] MEDS ORDERED: VERSED IV NR (08:00)
[2016-12-29] MEDS ORDERED: PEPCID PO NR (08:00)
[2016-12-29] MEDS ORDERED: NEURONTIN PO NR (08:05)
[2016-12-29] MEDS ORDERED: DILAUDID IV PRN (08:08)
--- NOTE | 2016-12-29 08:09 | Anesthesia Day of Surgery ---
Anesthesia Day of Surgery - Day of Surgery Patient Examined: Yes Patient H&P Reviewed: Yes Patient is NPO: Yes
--- NOTE | 2016-12-29 08:10 | Anesthesia Consultation ---
Anesthesia Consult and Med Hx Date of service: 12/29/16 - Airway Anesthetic Teeth Evaluation: Poor, Chipped (broken bottom and top teeth, loose bottom tooth) ROM Head & Neck: Adequate Mental/Hyoid Distance: Adequate Mallampati Class: Class II Intubation Access Assessment: Probably Good - Pulmonary Exam CTA: Yes - Cardiac Exam Cardiac Exam: RRR - Pre-Operative Health Status ASA Pre-Surgery Classification: ASA2 Proposed Anesthetic Plan: General Nerve Block: Pop - Pulmonary Hx Smoking: No Hx Asthma: Yes (childhood) - Cardiovascular System Hx Hypertension: No - Central Nervous System Hx Seizures: No CVA: No - Endocrine Hx Renal Disease: No Hx Cirrhosis: No Hx Non-Insulin Dependent Diabetes: No Hx Thyroid Disease: No - Other Systems Hx Obesity: Yes
[2016-12-29] MEDS ORDERED: NEOSTIGMINE ONE (08:13)
[2016-12-29] MEDS ORDERED: ZOFRAN ONE (08:13)
[2016-12-29] MEDS ORDERED: ROBINUL ONE (08:13)
[2016-12-29] MEDS ORDERED: DECADRON ONE (08:13)
[2016-12-29] MEDS ORDERED: TORADOL ONE (08:13)
[2016-12-29] MEDS ORDERED: NEO SYNEPHRINE/NS Syringe(OR USE) IV ONE (09:00)
[2016-12-29] MEDS ORDERED: MARCAINE 0.5% 30 ML INFILTRATI ONE (09:09)
--- NOTE | 2016-12-29 09:52 | Progress Note ---
Assessment and Plan Assessment and plan: 66 y/o male with no sig PMH fell from stairs after his foot got caught in the railing.Severe pain in Lt ankle and unable to put any weight on L foot. Pain is 10/10 in severity. Sharp in nature. Relieving factor is rest and no movement. Exacerbating factor is any movement in lower extremity. (1) Closed left ankle fracture Secondary to mechanical fall Current Visit: Yes Status: Acute Qualifiers: Encounter type: initial encounter Fracture healing: F Qualified Code(s): S82.892A - Other fracture of left lower leg, initial encounter for closed fracture Plan to address problem: Involving Tibia and Fibula. Distal fibula fracture with displaced distal fragment. ORIF today. (2) Pain management Current Visit: Yes Status: Acute Plan to address problem: Morphine 2 to 4 mg IVq 4 prn (3) DVT prophylaxis Current Visit: Yes Status: Acute Plan to address problem: On SCD's History Interval history: Patient seen and examined heading to surgery this am Hospitalist Physical - Physical exam Narrative exam: VITAL SIGNS: Reviewed. GENERAL: The patient appeared well nourished and normally developed. Vital signs as documented. HEAD: No signs of head trauma. EYES: Pupils are equal. Extraocular motions intact. EARS: Hearing grossly intact. MOUTH: Oropharynx is normal. NECK: No adenopathy, no JVD. CHEST: Chest with clear breath sounds bilaterally. No wheezes, rales, or rhonchi. CARDIAC: Regular rate and rhythm. S1 and S2, without murmurs, gallops, or rubs. VASCULAR: No Edema. Peripheral pulses normal and equal in all extremities. ABDOMEN: Soft, without detectable tenderness. No sign of distention. No rebound or guarding, and no masses palpated. Bowel Sounds normal. MUSCULOSKELETAL: left ankle deformity . Extremities without clubbing, cyanosis or edema. NEUROLOGIC EXAM: Alert and oriented x 3. No focal sensory or strength deficits. Speech normal. Follows commands. PSYCHIATRIC: Mood normal. SKIN: No rash or lesions. - Constitutional Vitals: Temp Pulse Resp BP Pulse Ox 99.1 F 87 20 177/83 98 12/29/16 07:50 12/29/16 07:50 12/29/16 08:37 12/29/16 07:50 12/29/16 07:50 General appearance: Present: no acute distress, well-nourished Results - Labs CBC & Chem 7: 12/29/16 03:36 12/29/16 03:36 Labs: Laboratory Last Values WBC 7.9 K/mm3 (4.5-11.0) 12/29/16 03:36 RBC 3.55 M/mm3 (3.65-5.03) L 12/29/16 03:36 Hgb 12.1 gm/dl (11.8-15.2) 12/29/16 03:36 Hct 34.8 % (35.5-45.6) L 12/29/16 03:36 MCV 98 fl (84-94) H 12/29/16 03:36 MCH 34 pg (28-32) H 12/29/16 03:36 MCHC 35 % (32-34) H 12/29/16 03:36 RDW 14.1 % (13.2-15.2) 12/29/16 03:36 Plt Count 141 K/mm3 (140-440) 12/29/16 03:36 Lymph % (Auto) 17.3 % (13.4-35.0) 12/29/16 03:36 [place] % (Auto) 15.9 % (0.0-7.3) H 12/29/16 03:36 Eos % (Auto) 3.1 % (0.0-4.3) 12/29/16 03:36 Baso % (Auto) 0.9 % (0.0-1.8) 12/29/16 03:36 Lymph # 1.4 K/mm3 (1.2-5.4) 12/29/16 03:36 [place] # 1.3 K/mm3 (0.0-0.8) H 12/29/16 03:36 Eos # 0.2 K/mm3 (0.0-0.4) 12/29/16 03:36 Baso # 0.1 K/mm3 (0.0-0.1) 12/29/16 03:36 Seg Neutrophils % 62.8 % (40.0-70.0) 12/29/16 03:36 Seg Neutrophils # 4.9 K/mm3 (1.8-7.7) 12/29/16 03:36 PT 14.2 Sec. (12.2-14.9) 12/28/16 10:37 INR 1.05 (0.87-1.13) 12/28/16 10:37 APTT 25.6 Sec. (24.2-36.6) 12/28/16 10:37 Sodium 137 mmol/L (137-145) 12/29/16 03:36 Potassium 4.6 mmol/L (3.6-5.0) 12/29/16 03:36 Chloride 98.5 mmol/L (98-107) 12/29/16 03:36 Carbon Dioxide 28 mmol/L (22-30) D 12/29/16 03:36 Anion Gap 15 mmol/L 12/29/16 03:36 BUN 8 mg/dL (9-20) L 12/29/16 03:36 Creatinine 0.7 mg/dL (0.8-1.5) L 12/29/16 03:36 Estimated GFR > 60 ml/min 12/29/16 03:36 BUN/Creatinine Ratio 11 % 12/29/16 03:36 Glucose 105 mg/dL (75-100) H 12/29/16 03:36 Calcium 8.6 mg/dL (8.4-10.2) 12/29/16 03:36 - Imaging and Cardiology Imaging and Cardiology: CT of lower extremities shows displaced trimalleolar fracture.
[2016-12-29] MEDS ORDERED: ANCEF ONE (10:03)
--- NOTE | 2016-12-29 12:01 | XRay Report ---
Left ankle 2 views: History: Dislocated left ventricle postop. Findings: There is internal fixation noted of spiral fracture distal left fibula with metallic plate and screws. Articulation of the ankle appears normal. No subluxation or dislocation is noted. Impression: Stable left ankle. Stable internal fixation.
[2016-12-29] MEDS ORDERED: MORPHINE IV PRN (14:02)
--- NOTE | 2016-12-29 15:04 | Post Anesthesia Evaluation ---
- Post Anesthesia Evaluation Patient Participated: Yes Airway Patent: Yes Stable Respiratory Function: Yes Nausea/Vomiting: No Temp > 96.8F: Yes Pain Manageable: Yes Adequeate Hydration: Yes Anesthesia Complications: No Patient on Ventilator: No
[2016-12-30] MEDS: D5NS 1,000 ML IV SCH ×2 (00:10→12:42)
--- NOTE | 2016-12-30 09:02 | Progress Note ---
Assessment and Plan Assessment and plan: 66 y/o male with no sig PMH fell from stairs after his foot got caught in the railing.Severe pain in Lt ankle and unable to put any weight on L foot. Pain is 10/10 in severity. Sharp in nature. Relieving factor is rest and no movement. Exacerbating factor is any movement in lower extremity. (1) Closed left ankle fracture Secondary to mechanical fall Involving Tibia and Fibula. Distal fibula fracture with displaced distal fragment. S/P ORIF Pain Control PT/OT (2) Pain management Current Visit: Yes Status: Acute Plan to address problem: Morphine 2 IVq 4 prn (3) DVT prophylaxis Current Visit: Yes Status: Acute Plan to address problem: On SCD's possible discharge on Sunday. History Interval history: Patient seen and examined doing well, good pain control post procedure. Hospitalist Physical - Physical exam Narrative exam: VITAL SIGNS: Reviewed. GENERAL: The patient appeared well nourished and normally developed. Vital signs as documented. HEAD: No signs of head trauma. EYES: Pupils are equal. Extraocular motions intact. EARS: Hearing grossly intact. MOUTH: Oropharynx is normal. NECK: No adenopathy, no JVD. CHEST: Chest with clear breath sounds bilaterally. No wheezes, rales, or rhonchi. CARDIAC: Regular rate and rhythm. S1 and S2, without murmurs, gallops, or rubs. VASCULAR: No Edema. Peripheral pulses normal and equal in all extremities. ABDOMEN: Soft, without detectable tenderness. No sign of distention. No rebound or guarding, and no masses palpated. Bowel Sounds normal. MUSCULOSKELETAL: Dressing left lower ext, able to move toes . Extremities without clubbing, cyanosis or edema. NEUROLOGIC EXAM: Alert and oriented x 3. No focal sensory or strength deficits. Speech normal. Follows commands. PSYCHIATRIC: Mood normal. SKIN: No rash or lesions. - Constitutional Vitals: Temp Pulse Resp BP Pulse Ox 98.6 F 65 20 138/67 98 12/30/16 04:28 12/30/16 04:28 12/30/16 04:28 12/30/16 04:28 12/30/16 04:28 General appearance: Present: no acute distress, well-nourished Results - Labs CBC & Chem 7: 12/29/16 03:36 12/29/16 03:36 Labs: Laboratory Last Values WBC 7.9 K/mm3 (4.5-11.0) 12/29/16 03:36 RBC 3.55 M/mm3 (3.65-5.03) L 12/29/16 03:36 Hgb 12.1 gm/dl (11.8-15.2) 12/29/16 03:36 Hct 34.8 % (35.5-45.6) L 12/29/16 03:36 MCV 98 fl (84-94) H 12/29/16 03:36 MCH 34 pg (28-32) H 12/29/16 03:36 MCHC 35 % (32-34) H 12/29/16 03:36 RDW 14.1 % (13.2-15.2) 12/29/16 03:36 Plt Count 141 K/mm3 (140-440) 12/29/16 03:36 Lymph % (Auto) 17.3 % (13.4-35.0) 12/29/16 03:36 [place] % (Auto) 15.9 % (0.0-7.3) H 12/29/16 03:36 Eos % (Auto) 3.1 % (0.0-4.3) 12/29/16 03:36 Baso % (Auto) 0.9 % (0.0-1.8) 12/29/16 03:36 Lymph # 1.4 K/mm3 (1.2-5.4) 12/29/16 03:36 [place] # 1.3 K/mm3 (0.0-0.8) H 12/29/16 03:36 Eos # 0.2 K/mm3 (0.0-0.4) 12/29/16 03:36 Baso # 0.1 K/mm3 (0.0-0.1) 12/29/16 03:36 Seg Neutrophils % 62.8 % (40.0-70.0) 12/29/16 03:36 Seg Neutrophils # 4.9 K/mm3 (1.8-7.7) 12/29/16 03:36 PT 14.2 Sec. (12.2-14.9) 12/28/16 10:37 INR 1.05 (0.87-1.13) 12/28/16 10:37 APTT 25.6 Sec. (24.2-36.6) 12/28/16 10:37 Sodium 137 mmol/L (137-145) 12/29/16 03:36 Potassium 4.6 mmol/L (3.6-5.0) 12/29/16 03:36 Chloride 98.5 mmol/L (98-107) 12/29/16 03:36 Carbon Dioxide 28 mmol/L (22-30) D 12/29/16 03:36 Anion Gap 15 mmol/L 12/29/16 03:36 BUN 8 mg/dL (9-20) L 12/29/16 03:36 Creatinine 0.7 mg/dL (0.8-1.5) L 12/29/16 03:36 Estimated GFR > 60 ml/min 12/29/16 03:36 BUN/Creatinine Ratio 11 % 12/29/16 03:36 Glucose 105 mg/dL (75-100) H 12/29/16 03:36 Calcium 8.6 mg/dL (8.4-10.2) 12/29/16 03:36
--- NOTE | 2016-12-30 09:59 | Procedure Note ---
Date of procedure: 12/29/16 Pre-op diagnosis: fracture dislocation left ankle Post-op diagnosis: same Procedure: Open reduction internal fixation left ankle Indications A 66-year-old male who fell down some stairs after having his foot caught in the railings he sustained a fracture dislocation of his left ankle he was seen in the emergency room where closed reduction was performed patient was splinted and brought to the OR now for open reduction Procedure The patient was brought to the OR and placed on the OR table in supine position following induction and intubation by anesthesia the patient's left lower extremity was prepped and draped in the usual sterile manner. A timeout procedure was done to identify the patient and the correct operative site. The leg was exsanguinated followed by inflation of the pneumatic tourniquet to 300 mmHg. A lateral incision was made over the distal fibula this is then taken down sharply through skin and subcutaneous the periosteum was then sized which brought us down to the fracture site. The patient was noted to have a oblique fracture pattern that was manipulated into a more reduced position A 8 hole one third semitubular plate was applied and fixed using 3.5 screws of various lengths and AP and lateral view was obtained on our C-arm and showed good reduction of the fracture and placement of the hardware next the wound was copiously irrigated and was closed in a standard routine fashion. Postoperative dressings were applied as well as a well-padded posterior mold the patient tolerated the procedure and there were no complications. Was taken to postanesthesia recovery in stable condition Anesthesia: PATRICIO Surgeon: RICCO MORENO Estimated blood loss: minimal Pathology: none Condition: stable Disposition: PACU
--- NOTE | 2016-12-30 10:22 | Progress Note ---
Assessment and Plan s/p ORIF left ankle doing well continue physical therapy and observation Subjective Date of service: 12/30/16 Interval history: no c/o's noted.... Objective Vital signs: Vital Signs - 12hr 12/29/16 12/30/16 12/30/16 23:40 04:28 08:00 Temperature 97.8 F 98.6 F 98.3 F Pulse Rate 74 65 78 Respiratory 20 20 20 Rate Blood Pressure 138/72 138/67 146/62 [Left] O2 Sat by Pulse 99 98 95 Oximetry Narrative Exam: post op dressing intact, good cap refill - Labs CBC & BMP: 12/29/16 03:36 12/29/16 03:36
--- NOTE | 2016-12-31 16:18 | Progress Note ---
Assessment and Plan (1) Closed left ankle fracture Secondary to mechanical fall Involving Tibia and Fibula. Distal fibula fracture with displaced distal fragment. S/P ORIF Pain Control PT/OT (2) Pain management Morphine 2 IVq 4 prn (3) DVT prophylaxis On SCD's possible discharge on tomorrow with arrangement for home PT/OT and walker for ambulation . Subjective Date of service: 12/31/16 Principal diagnosis: fx left ankle Interval history: Still having pain. Only able to put slight weight on the left leg walking with a walker. Objective - Constitutional Vitals: Vital Signs - 12hr 12/31/16 07:58 Temperature 98.2 F Pulse Rate 70 Respiratory 18 Rate Blood Pressure 170/75 [Left] O2 Sat by Pulse 95 Oximetry General appearance: Present: no acute distress, well-nourished - EENT Eyes: PERRL, EOM intact Ears: bilateral: normal - Neck Neck: supple, normal ROM - Respiratory Respiratory effort: normal Respiratory: bilateral: CTA, diminished - Cardiovascular Rhythm: regular Heart Sounds: Present: S1 & S2. Absent: gallop, rub Extremities: pulses intact, No edema, Full ROM - Gastrointestinal General gastrointestinal: Present: soft, non-tender, non-distended, normal bowel sounds - Integumentary Integumentary: clear, warm, dry - Musculoskeletal Musculoskeletal: 1, strength equal bilaterally - Neurologic Neurologic: moves all extremities - Psychiatric Psychiatric: appropriate mood/affect, intact judgment & insight, memory intact - Labs CBC & Chem 7: 12/29/16 03:36 12/29/16 03:36
[2017-01-01 09:56] VITALS: BP 157/73
--- NOTE | 2017-01-01 10:46 | Discharge Summary ---
Providers - Providers Date of Admission: 12/28/16 11:43 Attending physician: JULIO RODRIGUEZ MD 12/28/16 14:43 Consult to Physician [CONS] Routine Consulting Provider: RICCO MORENO Reason For Exam: Fibula fx lt Place consult to:: DR. 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 Pain is 10/10 in severity. Sharp in nature. Relieving factor is rest and no movement. Exacerbating factor is any movement in lower extremity. (1) Closed left ankle fracture Secondary to mechanical fall Involving Tibia and Fibula. Distal fibula fracture with displaced distal fragment. S/P ORIF Pain Control PT/OT Discharge today with Home health if ok with ortho (2) Pain management Current Visit: Yes Status: Acute Plan to address problem: Morphine 2 IVq 4 prn (3) Elevated BP without diagnosis of HTN Recommended BP diary and follow with PCP Disposition: DC/TX-06 HOME UND[facility] Time spent for discharge: 35 mins Core Measure Documentation - Palliative Care Palliative Care/ Comfort Measures: Not Applicable - Core Measures Any of the following diagnoses?: none - VTE Discharge Requirements Deep Vein Thrombosis/Pulmonary Embolism Present on Admission: No Exam - Physical Exam Narrative exam: VITAL SIGNS: Reviewed. GENERAL: The patient appeared well nourished and normally developed. Vital signs as documented. HEAD: No signs of head trauma. EYES: Pupils are equal. Extraocular motions intact. EARS: Hearing grossly intact. MOUTH: Oropharynx is normal. NECK: No adenopathy, no JVD. CHEST: Chest with clear breath sounds bilaterally. No wheezes, rales, or rhonchi. CARDIAC: Regular rate and rhythm. S1 and S2, without murmurs, gallops, or rubs. VASCULAR: No Edema. Peripheral pulses normal and equal in all extremities. ABDOMEN: Soft, without detectable tenderness. No sign of distention. No rebound or guarding, and no masses palpated. Bowel Sounds normal. MUSCULOSKELETAL: Dressing left lower ext, able to move toes, splint in place . Extremities without clubbing, cyanosis or edema. NEUROLOGIC EXAM: Alert and oriented x 3. No focal sensory or strength deficits. Speech normal. Follows commands. PSYCHIATRIC: Mood normal. SKIN: No rash or lesions. - Constitutional Vitals: Temp Pulse Resp BP Pulse Ox 97.9 F 73 20 157/73 96 01/01/17 08:20 01/01/17 08:20 01/01/17 08:20 01/01/17 08:20 01/01/17 05:23 Plan Activity: advance as tolerated, fall precautions Wound: per your surgeon's advice Special Instructions: record daily BP diary, physical therapy Additional Instructions: follow with PCP Follow up with: RICCO MORENO MD [Staff Physician] - 3-5 Days Prescriptions: oxyCODONE /ACETAMINOPHEN [Percocet 5/325 mg] 1 tab PO Q6H PRN #20 tablet PRN Reason: Pain, Moderate (4-6)
--- NOTE | 2017-01-02 15:10 | Query- Abnormal Electrolytes ---
Dear Date:___01/02/17 [employer] Mechanic/CDS:___Remi Phone#:__[phone] Exercise your independent professional judgment when responding to this query. Questions asked do not imply a particular answer is desired or expected. We greatly appreciate your clarification on this issue. Clinical Documentation States: 66 year old male was admitted on 12/28/16 The Discharge Summary(Dr Wright 01/01/17) states"Hospital course: 66 y/o male with no sig PMH fell from stairs after his foot got caught in the railing. (1) Closed left ankle fracture Secondary to mechanical fall " Clinical Findings Show: 12/28/16 Na: 132 Can you please clarify whether you mean? [x ] Hyponatremia [ ] Hypokalemia [ ] Hypocalcemia [ ] Hypomagnesemia [ ] Hypernatremia [ ] Hyperkalemia [ ] Hypercalcemia [ ] Hypermagnesemia [ ] Sodium deficiency [ ] Potassium deficiency [ ] Hypochloremia [ ] Sodium excess [ ] Potassium excess [ ] Hyperchloremia [ ] Sodium overload [ ] Potassium overload [ ] Hypophosphatemia [ ] Hyperphosphatemia Acidosis; [ ] Respiratory [ ] Metabolic Alkalosis; [ ] Respiratory [ ] Metabolic [ ] Other: [ ] Comment/Explanation: Present on Admission: [x ] Yes (Y) [ ] Clinically undeterminable (W) [ ]No(N) Please also document response in your Progress Notes and/or Discharge Summary and indicate if the condition was present on admission. MTDD
== END 2017-01-01 16:00 | disposition home or self-care (01) | DRG 493 ==
LOC: ED 09:14 → 3B-SURG 11:43
PROVIDERS: ADMIT Internal Medicine; ATTEND Internal Medicine
PROC: 0QSKXZZ Reposition Left Fibula, External Approach (ICD-10-PCS; 2016-12-28)
PROC: 0QSK04Z Reposition Left Fibula with Internal Fixation Device, Open Approach (ICD-10-PCS; principal; 2016-12-29)
DX: S82.432A Displaced oblique fracture of shaft of left fibula, initial encounter for closed fracture (principal); E87.1 Hypo-osmolality and hyponatremia; W10.8XXA Fall (on) (from) other stairs and steps, initial encounter; Y93.89 Activity, other specified; Y92.098 Other place in other non-institutional residence as the place of occurrence of the external cause; Y99.8 Other external cause status; S82.892A Other fracture of left lower leg, initial encounter for closed fracture
CPT/HCPCS: 36415; 80048; 85025; 85610; 85730; 93005; 93010; 96374; 96375; C1713; G8978-GP; G8979-GP; J0690; J1100; J1170; J1885; J2250; J2270; J2370; J2405; J2704; J2710; J3010; J7030; J7042

== ENCOUNTER 2018-06-08 09:06 | Emergency (ER) | payer MEDICARE ==
--- NOTE | 2018-06-08 12:22 | Emergency Department Report ---
ED General Adult HPI - General Chief complaint: Extremity Problem,Nontraumatic Stated complaint: L LEG ISSUES Time Seen by Provider: 06/08/18 12:17 Source: patient Mode of arrival: Ambulatory Limitations: No Limitations - History of Present Illness Initial comments: Patient is a 67-year-old male who is complaining of left ankle discomfort. Patient states that he had surgery in December 2016 on his left ankle. Patient did not go back for follow-up for this surgery with Dr. Faulkner. Patient states his kusum were removed but he told people he removed the kusum from the emergency department that there was still stable there and he states this this was left in his leg. Patient now conceive a stable and is asking to have this removed. Patient states he does have some dependent edema which does improve at night on his bilateral lower extremities. Patient has minimal pain at this time. There's been no fevers chills. No drainage from his wound. - Related Data Previous Rx's Medication Instructions Recorded Last Taken Type Furosemide [Lasix TAB] 40 mg PO BID #60 tablet 07/21/17 Unknown Rx Pentoxifylline [TRENtal] 400 mg PO Q8HR #90 tablet 07/21/17 Unknown Rx Potassium Chloride [K-Dur] 40 meq PO Q8HR #180 tablet 07/21/17 Unknown Rx Spironolactone [Aldactone] 100 mg PO BID #120 tablet 07/21/17 Unknown Rx cephALEXin [Keflex] 500 mg PO Q12HR #10 capsule 07/21/17 Unknown Rx Allergies Allergy/AdvReac Type Severity Reaction Status Date / Time No Known Allergies Allergy Unverified 12/28/16 09:43 ED Review of Systems ROS: Stated complaint: L LEG ISSUES Other details as noted in HPI Comment: All other systems reviewed and negative ED Past Medical Hx - Past Medical History Previous Medical History?: No Hx Hypertension: No Hx Renal Disease: No Hx Seizures: No Hx Asthma: Yes (childhood) Hx HIV: No - Surgical History Past Surgical History?: Yes Additional Surgical History: R FOOT SURGERY 1993. Left ankle - Social History Smoking Status: Never Smoker Substance Use Type: Alcohol - Medications Home Medications: Home Medications Medication Instructions Recorded Confirmed Last Taken Type Furosemide [Lasix TAB] 40 mg PO BID #60 tablet 07/21/17 Unknown Rx Pentoxifylline [TRENtal] 400 mg PO Q8HR #90 tablet 07/21/17 Unknown Rx Potassium Chloride [K-Dur] 40 meq PO Q8HR #180 tablet 07/21/17 Unknown Rx Spironolactone [Aldactone] 100 mg PO BID #120 tablet 07/21/17 Unknown Rx cephALEXin [Keflex] 500 mg PO Q12HR #10 capsule 07/21/17 Unknown Rx ED Physical Exam - General Limitations: No Limitations General appearance: alert, in no apparent distress - Head Head exam: Present: atraumatic, normocephalic - Eye Eye exam: Present: normal appearance - ENT ENT exam: Present: mucous membranes moist - Neck Neck exam: Present: normal inspection - Respiratory Respiratory exam: Present: normal lung sounds bilaterally. Absent: respiratory distress - Cardiovascular Cardiovascular Exam: Present: regular rate, normal rhythm. Absent: systolic murmur, diastolic murmur, rubs, gallop - GI/Abdominal GI/Abdominal exam: Present: soft, normal bowel sounds - Rectal Rectal exam: Present: deferred - Extremities Exam Extremities exam: Present: normal inspection, other (patient with a well-healed scar on the lateral aspect of his left ankle. There is 1 single staple that is visualized. There is no erythema or purulent drainage. The patient does have some 2+ pitting edema at the distal lower extremity deficit foot bilateral.) - Back Exam Back exam: Present: normal inspection - Neurological Exam Neurological exam: Present: alert, oriented X3 - Psychiatric Psychiatric exam: Present: normal affect, normal mood - Skin Skin exam: Present: warm, dry, intact, normal color. Absent: rash ED Medical Decision Making - Medical Decision Making The patient's staple in his left lower extremity wound mostly been deeper covered with scab. The wound is now well-healed is very obvious that there is a stapled there's been left. Patient will have the staple removed the patient be discharged home. Critical care attestation.: If time is entered above; I have spent that time in minutes in the direct care of this critically ill patient, excluding procedure time. ED Disposition Clinical Impression: Removal of kusum, Dependent edema Closed left ankle fracture Qualifiers: Encounter type: subsequent encounter Fracture healing: with routine healing Qualified Code(s): S82.892D - Other fracture of left lower leg, subsequent encounter for closed fracture with routine healing Disposition: DC-01 TO HOME OR SELFCARE Is pt being admited?: No Does the pt Need Aspirin: No Condition: Stable Instructions: Leg Edema (ED) [facility] - 3-5 Days Time of Disposition: 12:21
== END 2018-06-08 12:41 | disposition home or self-care (01) ==
LOC: ED 09:06
DX: S82.892D Other fracture of left lower leg, subsequent encounter for closed fracture with routine healing (principal); R60.9 Edema, unspecified; J45.909 Unspecified asthma, uncomplicated; Y92.89 Other specified places as the place of occurrence of the external cause
CPT/HCPCS: 99281